=== PATIENT | male | born 1990 ===

== ENCOUNTER 2018-10-30 17:17 | Emergency (ER) | payer SELFPAY ==
[2018-10-30 17:29] VITALS: RESP 18
[2018-10-30 17:45] LABS: BASO # 0.1 K/uL (0.0-0.2); BASO % 0.5 % (0.0-2.0); EOS # 0.7 K/uL (0.0-0.7); EOS % 4.6 % (0.0-4.0); HEMOGLOBIN 14.9 g/dL (12.0-18.0); LYMPH # 3.9 K/uL (1.0-4.3); LYMPH % 26.3 % (20.0-40.0); MEAN CELL VOLUME 87.7 fl (80.0-94.0); MEAN CORPUSCULAR HEMOGLOBIN 29.2 pg (27.0-31.0); MEAN CORPUSCULAR HGB CONC 33.3 g/dL (33.0-37.0); MEAN PLATELET VOLUME 7.8 fl (7.2-11.7); MONO # 1.4 K/uL (0.0-0.8); MONO % 9.6 % (0.0-10.0); NEUT # 8.9 K/uL (1.8-7.0); NRBC % 0.1 % (0.0-0.0); RBC 5.1 Mil/uL (4.40-5.90); RED CELL DISTRIBUTION WIDTH 13.5 % (11.5-14.5)
--- NOTE | 2018-10-30 17:50 | ED PDOC ---
Lower Extremity Pain/Injury Time Seen by Provider: 10/30/18 17:34 Chief Complaint (Nursing): Lower Extremity Problem/Injury Chief Complaint (Provider): Lower Extremity Problem/Injury History Per: Patient History/Exam Limitations: no limitations Onset/Duration Of Symptoms: Days (x2) Current Symptoms Are (Timing): Still Present Additional Complaint(s): 28 y/o male presents to the ED for evaluation of right foot pain. Patient reports of having noticed redness to the right foot after riding his bike two days ago. Patient denies any history of gout. Patient notes most of the pain is located at the base of the first toe. PMD: no provider Past Medical History Reviewed: Historical Data, Nursing Documentation, Vital Signs Vital Signs: Last Vital Signs Temp 99.3 F 10/30/18 17:25 Pulse 84 10/30/18 17:25 Resp 18 10/30/18 17:25 BP 125/73 10/30/18 17:25 Pulse Ox 99 10/30/18 17:25 - Medical History PMH: No Chronic Diseases - Surgical History Surgical History: No Surg Hx - Family History Family History: States: Unknown Family Hx - Home Medications Home Medications: Ambulatory Orders Medication Instructions Recorded Cephalexin [Keflex] 500 mg PO TID #21 capsule 10/30/18 Ibuprofen [Motrin] 600 mg PO Q8 PRN #21 tab 10/30/18 Sulfamethoxazole/Trimethoprim 2 tab PO BID #28 tab 10/30/18 [Bactrim DS 800 mg-160 mg] - Allergies Allergies/Adverse Reactions: Allergies Allergy/AdvReac Type Severity Reaction Status Date / Time No Known Allergies Allergy Verified 10/30/18 17:25 Review of Systems ROS Statement: Except As Marked, All Systems Reviewed And Found Negative Musculoskeletal: Positive for: Foot Pain Physical Exam - Reviewed Nursing Documentation Reviewed: Yes Vital Signs Reviewed: Yes - Physical Exam Appears: Positive for: No Acute Distress Extremity: Positive for: Tenderness (Most tender at the first MTP. ), Other (wounds noted on the right foot. Mild erytyema noted on the dorsum of the foot. ) - Laboratory Results Result Diagrams: 10/30/18 17:42 10/30/18 18:20 - ECG O2 Sat by Pulse Oximetry: 99 (RA) Pulse Ox Interpretation: Normal Medical Decision Making Medical Decision Making: Time: 1732 Plan: -- CBC with Differentials -- Foot XR Time: 1751 -- XR as read by me demonstrates no acute findings, no fracture. Time: 1804 -- Uric Acid -- CMP -- Ancef 1 gm Sodium Chloride 0.9% 100 ml IVPB -- Vancomycin Inj 1 gm Sodium Chloride 0.9% 250 ml IVPB -- Blood Culture Scribe Attestation: Documented by Maryan Hansen, acting as a scribe Marco Antonio Shea PA-C. Provider Scribe Attestation: All medical record entries made by the Scribe were at my direction and personally dictated by me. I have reviewed the chart and agree that the record accurately reflects my personal performance of the history, physical exam, medical decision making, and the department course for this patient. I have also personally directed, reviewed, and agree with the discharge instructions and disposition. Disposition - Clinical Impression Clinical Impression: Cellulitis - Patient ED Disposition Is Patient to be Admitted: No - Disposition Disposition: Routine/Home Disposition Time: 19:07 Condition: FAIR Additional Instructions: REGRESA EN 24 A 48 HORAS PARA REVISAR Prescriptions: Cephalexin [Keflex] 500 mg PO TID #21 capsule Ibuprofen [Motrin] 600 mg PO Q8 PRN #21 tab PRN Reason: Pain, Moderate (4-7) Sulfamethoxazole/Trimethoprim [Bactrim DS 800 mg-160 mg] 2 tab PO BID #28 tab Instructions: Cellulitis and Erysipelas (Skin Infections) Print Language: MALTESE
--- NOTE | 2018-10-30 17:58 | RAD ---
Date of service: 10/30/2018 PROCEDURE: Right Foot Radiographs. HISTORY: swelling/erythema COMPARISON: None. TECHNIQUE: 3 views obtained. FINDINGS: BONES: Bone alignment and mineralization are normal. There is no acute displaced fracture or bone destruction. JOINTS: Normal. SOFT TISSUES: There is severe dorsal soft tissue swelling. OTHER FINDINGS: None. IMPRESSION: No acute fracture, bone erosion or bone destruction. Severe dorsal soft tissue swelling.
[2018-10-30] MEDS ORDERED: ceFAZolin 1 GM in Sodium Chloride 0.9% 100 ML IVPB ONE (18:04)
[2018-10-30] MEDS ORDERED: Vancomycin 1 g Inj ONE (18:19)
[2018-10-30 18:36] LABS: ALB/GLOB RATIO 1.2 (1.0-2.1); ALBUMIN 4.6 g/dL (3.5-5.0); ALT/SGPT 94 U/L (21-72); AST/SGOT 51 U/L (17-59); BLOOD UREA NITROGEN 16 mg/dl (9-20); GFR NON-AFRICAN AMERICAN > 60; URIC ACID 7.1 mg/Dl (3.5-8.5)
[2018-10-30 21:43] VITALS: BP 119/72; PULSE 69; TEMP 98.1; O2SAT 100
== END 2018-10-30 21:50 | disposition home or self-care (01) ==
LOC: H.ER 17:17
DX: L03.115 Cellulitis of right lower limb (principal)
CPT/HCPCS: 73630; 80053; 84550; 85025; 87040; 96365; 96366; 96367; 99283; J0690